=== PATIENT | female | born 1985 | race Two or more races ===

== ENCOUNTER 2020-07-11 11:12 | Emergency (ER) | payer OTHER ==
[~2020-07-11] VITALS: Ht 167.6 cm; Wt 77.6 kg
== END 2020-07-11 12:32 | disposition home or self-care (01) ==
LOC: ER 11:12
DX: S01.82XA Laceration with foreign body of other part of head, initial encounter (principal); W18.09XA Striking against other object with subsequent fall, initial encounter; Y93.89 Activity, other specified; Y92.89 Other specified places as the place of occurrence of the external cause; Y99.8 Other external cause status